=== PATIENT | male | born 1965 | race Two or more races ===

== ENCOUNTER 2021-07-31 22:28 | Emergency (ER) | payer MEDICAID, OTHER ==
[~2021-07-31] VITALS: Ht 180.3 cm; Wt 102.1 kg
[2021-08-01] MEDS ORDERED: FUROSEMIDE 40 MG/4 ML VIAL IV ONE (00:30)
[2021-08-01] MEDS ORDERED: CLIN300C8 PO (01:23)
[2021-08-01] MEDS ORDERED: CEPH-509 PO (01:23)
[2021-08-01 02:16] LABS: Basophils # (auto) 0.1 10 ^3/uL (0-0.2); Monocytes # (auto) 1.4 10 ^3/uL (0-1.3)
[2021-08-01 02:19] LABS: Basophils % (auto) 1.3 % (0.0-2.0); Eosinophils # (auto) 0.2 10 ^3/uL (0-0.8); Eosinophils % (auto) 1.9 % (0.0-7.0); Hematocrit 41.8 % (41.0-53.0); Hemoglobin 13.5 g/dL (13.5-17.5); Lymphocytes # (auto) 2.5 10 ^3/uL (0.4-5.4); Lymphocytes % (auto) 23.5 % (10.0-50.0); Mean Corpuscular Hemoglobin 22.3 pg (28.0-32.0); Mean Corpuscular Hgb Conc. 32.3 g/dL (32.0-36.0); Mean Corpuscular Volume 69.2 fL (80.0-100.0); Monocytes % (auto) 13.7 % (0.0-12.0); Neutrophils # (auto) 6.3 10 ^3/uL (1.6-8.6); Neutrophils % (auto) 59.6 % (37.0-80.0); Nucleated Red Blood Cells % 0.1 %; Red Blood Cells 6.04 10^6/uL (4.5-5.90); Red Cell Distribution Width 15.4 % (11.8-14.3); White Blood Cell 10.6 10^3/uL (4.4-10.8)
[2021-08-01 02:34] LABS: Potassium 4.4 mmol/L (3.5-5.1)
[2021-08-01 02:39] LABS: BUN/Creatinine Ratio 22.4; Calcium 9.4 mg/dL (8.5-10.1)
[2021-08-01 02:42] LABS: Bilirubin, Total 0.3 mg/dL (0.2-1.0); Total Protein 7.5 g/dL (6.4-8.2)
[2021-08-01] MEDS ORDERED: HYDROcodone-ACET 10/325MG TAB PO ONE (06:45)
[2021-08-01 07:25] VITALS: BP 154/81
== END 2021-08-01 07:36 | disposition home or self-care (01) ==
LOC: ER 22:45
DX: I50.9 Heart failure, unspecified (principal); L03.116 Cellulitis of left lower limb
CPT/HCPCS: 36415; 71045; 80053; 83880; 85025; 96374; 99284; J1940

== ENCOUNTER 2023-02-17 16:58 | Inpatient (IN) | payer MEDICAID ==
[~2023-02-17] VITALS: Ht 180.3 cm; Wt 89.9 kg
[~2023-02-17 16:58] MED LIST: CEPH-509 PO; CLIN300C70 PO
[2023-02-17 18:12] LABS: Hemoglobin 9.7 g/dL (13.5-17.5)
[2023-02-17 18:14] LABS: Hematocrit 30.1 % (41.0-53.0); Mean Corpuscular Hemoglobin 21.8 pg (28.0-32.0); Mean Corpuscular Hgb Conc. 32.3 g/dL (32.0-36.0); Mean Corpuscular Volume 67.3 fL (80.0-100.0); Red Blood Cells 4.47 10^6/uL (4.5-5.90); Red Cell Distribution Width 18.8 % (11.8-14.3); White Blood Cell 20.9 10^3/uL (4.4-10.8)
[2023-02-17 18:19] LABS: Basophils % (manual) 0 (0.0-2.0); Blast Cells 0; Metamyelocytes % 0; Myelocytes % 0; Promyelocytes % 0; Reactive Lymphocytes 0
[2023-02-17 18:27] LABS: INR 1.54 (0.9-1.15); Partial Thromboplastin Time 26.1 SEC (24.5-34.5); Prothrombin Time 15.7 sec (9.3-11.8)
[2023-02-17 18:40] LABS: Calcium 11.7 mg/dL (8.5-10.1); Potassium 3.9 mmol/L (3.5-5.1)
[2023-02-17 18:43] LABS: BUN/Creatinine Ratio 11.3 (10.0-20.0); Bilirubin, Total 0.6 mg/dL (0.2-1.0); Total Protein 8.6 g/dL (6.4-8.2)
[2023-02-17 19:13] LABS: Band Neutrophils % (manual) 2; Eosinophils % (manual) 18 (0-7); Lymphocytes % (manual) 8 (10.0-50.0); Monocytes % (manual) 10 (0-12)
[2023-02-17 19:14] LABS: Anisocytosis Slight; Hypochromia Slight; Macrocytosis Slight; Platelet Estimate Adequate
[2023-02-17] MEDS ORDERED: cefTRIAXone 1GM/50ML D5W 50 ML IV ONE (21:00)
[2023-02-17] MEDS ORDERED: DEXTROSE (50%) 50ML SYRG IV PRN (21:00)
[2023-02-17] MEDS ORDERED: ONDANSETRON HCL 4 MG/2 ML VIAL IV PRN (21:00)
[2023-02-17] MEDS: InsuLIN REG 1unit/0.01ml Soln (100units/ml) SC SCH (22:00)
[2023-02-17] MEDS: HYDROcodone-ACET 5/325MG TAB PO PRN (22:10)
[2023-02-17] MEDS: ACCU-CHEK COMFORT CURVE STRIP VI SCH (22:11)
[2023-02-17 23:49] LABS: Urine Bacteria NONE SEEN /hpf (None Seen); Urine Blood Negative /uL (Negative); Urine Budding Yeast OCCASIONAL /hpf (None Seen); Urine Clarity CLOUDY (Clear); Urine Color Yellow (Yellow); Urine Protein, UAD 1+ (Negative); Urine Specific Gravity 1.028 (1.001-1.035); Urine WBC 3 /hpf (0 - 3); Urine WBC Clumps PRESENT /hpf (None Seen); Urine pH 6.5 (5.0-8.0)
[2023-02-18] MEDS: HYDROcodone-ACET 5/325MG TAB PO PRN ×3 (04:08→14:51)
[2023-02-18 06:46] LABS: Hemoglobin 9.1 g/dL (13.5-17.5); Mean Corpuscular Hgb Conc. 32.4 g/dL (32.0-36.0)
[2023-02-18 06:48] LABS: Hematocrit 28.2 % (41.0-53.0); Mean Corpuscular Hemoglobin 21.9 pg (28.0-32.0); Mean Corpuscular Volume 67.5 fL (80.0-100.0); Red Blood Cells 4.17 10^6/uL (4.5-5.90); Red Cell Distribution Width 18.5 % (11.8-14.3); White Blood Cell 20.4 10^3/uL (4.4-10.8)
[2023-02-18 06:52] LABS: Basophils % (manual) 0 (0.0-2.0); Blast Cells 0; Metamyelocytes % 0; Myelocytes % 0; Promyelocytes % 0; Reactive Lymphocytes 0
[2023-02-18] MEDS: ACCU-CHEK COMFORT CURVE STRIP VI SCH ×4 (06:55→22:00)
[2023-02-18] MEDS: InsuLIN REG 1unit/0.01ml Soln (100units/ml) SC SCH ×4 (06:56→22:00)
[2023-02-18 07:03] LABS: Potassium 3.4 mmol/L (3.5-5.1)
[2023-02-18 07:07] LABS: BUN/Creatinine Ratio 11.8 (10.0-20.0); Calcium 11.4 mg/dL (8.5-10.1)
[2023-02-18 07:25] VITALS: PULSE 94; RESP 20; O2SAT 97
[2023-02-18 07:39] LABS: Anisocytosis Slight; Band Neutrophils % (manual) 1; Eosinophils % (manual) 27 (0-7); Lymphocytes % (manual) 12 (10.0-50.0); Monocytes % (manual) 7 (0-12); Platelet Estimate Adequate
[2023-02-18 07:40] LABS: Hypochromia Moderate; Large Platelets FEW; Stomatocytes Few; Target Cell FEW
[2023-02-18] MEDS: cefTRIAXone 1GM/50ML D5W 50 ML IV SCH (08:56)
[2023-02-18] MEDS: LISINOPRIL 10 MG TAB PO SCH (09:51)
[2023-02-18] MEDS: FUROSEMIDE 40 MG TAB PO SCH (09:51)
[2023-02-18 10:53] LABS: Ferritin 228.6 ng/mL (10-322)
[2023-02-18 10:55] LABS: % Iron Saturation 32.9 % (20-55)
[2023-02-18] MEDS ORDERED: LISI10TA34 PO (22:52)
[2023-02-18] MEDS ORDERED: FURO40TA4 PO (22:52)
[2023-02-18] MEDS ORDERED: METF-869 PO (22:52)
[2023-02-18] MEDS ORDERED: HYDR-4072 PO (22:52)
[2023-02-18] MEDS ORDERED: INSU1INJ19 SC (22:52)
[2023-02-18] MEDS ORDERED: GLIP10TA9 PO (22:52)
[2023-02-18] MEDS ORDERED: SEMA2INJ3 SC (22:52)
[2023-02-18 23:00] VITALS: BP 136/79; PULSE 100; RESP 20; TEMP 98; O2SAT 96
[2023-02-18] MEDS: ACETAMINOPHEN 325 MG TAB PO PRN (23:12)
[2023-02-19] VITALS (7 sets, daily range): BP systolic 108–135; BP diastolic 61–80; PULSE 98–116; RESP 16–20; TEMP 98–98.4; O2SAT 88–96
[2023-02-19 05:26] LABS: Hemoglobin 9.4 g/dL (13.5-17.5)
[2023-02-19 05:27] LABS: Hematocrit 28.8 % (41.0-53.0); Mean Corpuscular Hemoglobin 21.9 pg (28.0-32.0); Mean Corpuscular Hgb Conc. 32.7 g/dL (32.0-36.0); Mean Corpuscular Volume 67.2 fL (80.0-100.0); Red Blood Cells 4.29 10^6/uL (4.5-5.90); Red Cell Distribution Width 18.2 % (11.8-14.3)
[2023-02-19 05:37] LABS: Potassium 3.2 mmol/L (3.5-5.1)
[2023-02-19 05:39] LABS: Basophils % (manual) 0 (0.0-2.0); Blast Cells 0; Metamyelocytes % 0; Myelocytes % 0; Promyelocytes % 0; Reactive Lymphocytes 0
[2023-02-19 05:46] LABS: Albumin 1.7 g/dL (3.4-5.0); BUN/Creatinine Ratio 11.5 (10.0-20.0); Bilirubin, Total 0.5 mg/dL (0.2-1.0); Calcium 11.5 mg/dL (8.5-10.1); Total Protein 8.3 g/dL (6.4-8.2)
[2023-02-19] MEDS: ACCU-CHEK COMFORT CURVE STRIP VI SCH ×4 (06:27→21:50)
[2023-02-19] MEDS: InsuLIN REG 1unit/0.01ml Soln (100units/ml) SC SCH ×4 (06:27→21:50)
[2023-02-19] MEDS: HYDROcodone-ACET 5/325MG TAB PO PRN ×3 (07:18→21:51)
[2023-02-19] MEDS ORDERED: fentaNYL CITRATE 100 MCG/2 ML VL IV ONE (08:00)
[2023-02-19] MEDS ORDERED: MIDAZOLAM HCL 2MG/2ML 2ml VIAL (1mg/ml) IV ONE (08:00)
[2023-02-19 08:06] LABS: Haptoglobin 184 mg/dL (29-370); Immunoglobulin A 180 mg/dL (90-386); Immunoglobulin G, Serum 4398 mg/dL (603-1613); Immunoglobulin M 63 mg/dL (20-172)
[2023-02-19 08:39] LABS: Anisocytosis Slight; Band Neutrophils % (manual) 1; Eosinophils % (manual) 26 (0-7); Hypochromia Moderate; Lymphocytes % (manual) 12 (10.0-50.0); Monocytes % (manual) 5 (0-12); Platelet Estimate Adequate; Target Cell FEW
[2023-02-19 08:40] LABS: Large Platelets FEW
[2023-02-19] MEDS: cefTRIAXone 1GM/50ML D5W 50 ML IV SCH (09:44)
[2023-02-19] MEDS: LISINOPRIL 10 MG TAB PO SCH (09:47)
[2023-02-19] MEDS: FUROSEMIDE 40 MG TAB PO SCH (09:48)
[2023-02-19] MEDS ORDERED: diphenhdrAMINE HCL 25 MG CAP PO ONE ×2 (10:30→13:00)
[2023-02-19] MEDS ORDERED: AZITHROMYCIN 250 MG TAB PO ONE (13:00)
[2023-02-19] MEDS ORDERED: amLODIPine BESYLATE 5 MG TAB PO ONE (13:00)
[2023-02-19] MEDS ORDERED: POTASSIUM CHL 20 Meq TABLET PO ONE (13:00)
[2023-02-19] MEDS ORDERED: FUROSEMIDE 40 MG/4 ML VIAL IV ONE (13:00)
[2023-02-19] MEDS ORDERED: ATORVASTATIN 20 MG TAB PO ONE (13:00)
[2023-02-19] MEDS: ATORVASTATIN 20 MG TAB PO SCH (21:50)
[2023-02-20] VITALS (7 sets, daily range): BP systolic 94–119; BP diastolic 46–71; PULSE 80–101; RESP 14–19; TEMP 97.8–99.2; O2SAT 91–97
[2023-02-20 06:38] LABS: Hemoglobin 10.1 g/dL (13.5-17.5); Mean Corpuscular Volume 66.6 fL (80.0-100.0); White Blood Cell 21.1 10^3/uL (4.4-10.8)
[2023-02-20 06:41] LABS: Hematocrit 31.5 % (41.0-53.0); Mean Corpuscular Hemoglobin 21.3 pg (28.0-32.0); Red Blood Cells 4.73 10^6/uL (4.5-5.90); Red Cell Distribution Width 18.9 % (11.8-14.3)
[2023-02-20] MEDS: InsuLIN REG 1unit/0.01ml Soln (100units/ml) SC SCH ×4 (06:43→21:43)
[2023-02-20] MEDS: ACCU-CHEK COMFORT CURVE STRIP VI SCH ×4 (06:43→21:41)
[2023-02-20 06:50] LABS: Basophils % (manual) 0 (0.0-2.0); Blast Cells 0; Myelocytes % 0; Promyelocytes % 0; Reactive Lymphocytes 0
[2023-02-20 06:59] LABS: BUN/Creatinine Ratio 13.4 (10.0-20.0); Calcium 11.5 mg/dL (8.5-10.1); Potassium 3.4 mmol/L (3.5-5.1)
[2023-02-20 08:06] LABS: Vitamin D, 25-Hydroxy 27.8 ng/mL (30.0-100.0)
[2023-02-20 08:06] LABS: Albumin 2.1 g/dL (2.9-4.4); Alpha-1-Globulin 0.3 g/dL (0.0-0.4); Alpha-2-Globulin 0.9 g/dL (0.4-1.0); Protein Total Serum 8.1 g/dL (6.0-8.5)
[2023-02-20 08:12] LABS: Band Neutrophils % (manual) 3; Eosinophils % (manual) 21 (0-7); Lymphocytes % (manual) 14 (10.0-50.0); Metamyelocytes % 1; Monocytes % (manual) 6 (0-12)
[2023-02-20 08:13] LABS: Anisocytosis Slight
[2023-02-20 08:14] LABS: Hypochromia Moderate; Platelet Estimate Adequate
[2023-02-20] MEDS: cefTRIAXone 1GM/50ML D5W 50 ML IV SCH (08:48)
[2023-02-20] MEDS: AZITHROMYCIN 250 MG TAB PO SCH (08:48)
[2023-02-20] MEDS: amLODIPine BESYLATE 5 MG TAB PO SCH (08:49)
[2023-02-20] MEDS: HYDROcodone-ACET 5/325MG TAB PO PRN (08:57)
[2023-02-20] MEDS ORDERED: FUROSEMIDE 40 MG/4 ML VIAL IV SCH (10:00)
[2023-02-20] MEDS ORDERED: POTASSIUM CHL 20 Meq TABLET PO ONE (10:15)
[2023-02-20] MEDS ORDERED: DexAMETHasone SOD PHOS 4 MG/1ML SDV INJ IM ONE (10:15)
[2023-02-20] MEDS: SODIUM CHLORIDE 0.9% 1,000 ML IV SCH ×2 (10:54→21:10)
[2023-02-20] MEDS: diphenhdrAMINE HCL 25 MG CAP PO PRN ×2 (11:02→21:40)
[2023-02-20 11:07] LABS: Calcitriol(125 di-OH Vit D) 18.6 pg/mL (24.8-81.5)
[2023-02-20] MEDS ORDERED: DexAMETHasone 4 MG TAB PO ONE (11:30)
[2023-02-20] MEDS ORDERED: OXYMETAZOLINE HCL 0.05 % NASAL SPRAY 15ML EACHNOSTRI ONE (17:15)
[2023-02-20] MEDS: DexAMETHasone 4 MG TAB PO SCH (21:40)
[2023-02-20] MEDS: ATORVASTATIN 20 MG TAB PO SCH (21:41)
[2023-02-20] MEDS ORDERED: DexAMETHasone SOD PHOS 4 MG/1ML SDV INJ IM SCH (22:00)
[2023-02-21 05:00] VITALS: BP 107/52; PULSE 98; RESP 19; TEMP 98.4; O2SAT 94
[2023-02-21 06:05] LABS: BUN/Creatinine Ratio 17.5 (10.0-20.0); Calcium 10.9 mg/dL (8.5-10.1); Potassium 3.8 mmol/L (3.5-5.1)
[2023-02-21] MEDS: SODIUM CHLORIDE 0.9% 1,000 ML IV SCH ×3 (06:07→22:48)
[2023-02-21] MEDS: ACCU-CHEK COMFORT CURVE STRIP VI SCH ×4 (06:08→22:48)
[2023-02-21] MEDS: InsuLIN REG 1unit/0.01ml Soln (100units/ml) SC SCH ×4 (06:14→22:46)
[2023-02-21 06:18] LABS: Hemoglobin 9.3 g/dL (13.5-17.5)
[2023-02-21 06:21] LABS: Hematocrit 29.1 % (41.0-53.0); Mean Corpuscular Hemoglobin 21.7 pg (28.0-32.0); Mean Corpuscular Volume 67.9 fL (80.0-100.0); Red Blood Cells 4.28 10^6/uL (4.5-5.90); Red Cell Distribution Width 18.6 % (11.8-14.3)
[2023-02-21 06:24] LABS: Basophils % (manual) 0 (0.0-2.0); Blast Cells 0; Myelocytes % 0; Promyelocytes % 0; Reactive Lymphocytes 0
[2023-02-21 07:38] LABS: Band Neutrophils % (manual) 3; Lymphocytes % (manual) 10 (10.0-50.0)
[2023-02-21 07:39] LABS: Anisocytosis Slight; Eosinophils % (manual) 16 (0-7); Hypochromia Moderate; Metamyelocytes % 1; Monocytes % (manual) 15 (0-12)
[2023-02-21 07:40] LABS: Platelet Estimate Adequate
[2023-02-21 09:00] VITALS: BP 126/70; PULSE 88; RESP 20; TEMP 98.3; O2SAT 95
[2023-02-21] MEDS: cefTRIAXone 1GM/50ML D5W 50 ML IV SCH (09:12)
[2023-02-21] MEDS: DexAMETHasone 4 MG TAB PO SCH ×2 (09:29→22:42)
[2023-02-21] MEDS: amLODIPine BESYLATE 5 MG TAB PO SCH (09:30)
[2023-02-21] MEDS: AZITHROMYCIN 250 MG TAB PO SCH (09:30)
[2023-02-21] MEDS ORDERED: FUROSEMIDE 20 MG/2 ML VIAL IV SCH (10:00)
[2023-02-21] MEDS ORDERED: DOCUSATE CALCIUM 240 MG CAP PO ONE (10:30)
[2023-02-21 13:00] VITALS: BP 119/74; PULSE 95; RESP 20; TEMP 98; O2SAT 94
[2023-02-21] MEDS: diphenhdrAMINE HCL 25 MG CAP PO PRN ×2 (14:48→19:56)
[2023-02-21] MEDS: HYDROcodone-ACET 5/325MG TAB PO PRN ×2 (15:26→19:58)
[2023-02-21 17:00] VITALS: BP 133/77; PULSE 97; RESP 19; TEMP 98.1; O2SAT 93
[2023-02-21 20:00] VITALS: PULSE 84; RESP 20
[2023-02-21] MEDS: ATORVASTATIN 20 MG TAB PO SCH (22:41)
[2023-02-22] MEDS: HYDROcodone-ACET 5/325MG TAB PO PRN ×5 (00:13→21:45)
[2023-02-22] MEDS: diphenhdrAMINE HCL 25 MG CAP PO PRN ×3 (04:04→23:56)
[2023-02-22 05:00] VITALS: BP 117/69; PULSE 87; RESP 20; TEMP 98.2; O2SAT 98
[2023-02-22] MEDS: InsuLIN REG 1unit/0.01ml Soln (100units/ml) SC SCH ×4 (06:02→21:54)
[2023-02-22] MEDS: ACCU-CHEK COMFORT CURVE STRIP VI SCH ×4 (06:03→21:50)
[2023-02-22 06:43] LABS: Hemoglobin 9.7 g/dL (13.5-17.5); White Blood Cell 14.1 10^3/uL (4.4-10.8)
[2023-02-22 06:46] LABS: Hematocrit 29.7 % (41.0-53.0); Mean Corpuscular Hemoglobin 22.6 pg (28.0-32.0); Mean Corpuscular Hgb Conc. 32.6 g/dL (32.0-36.0); Mean Corpuscular Volume 69.3 fL (80.0-100.0); Red Blood Cells 4.28 10^6/uL (4.5-5.90); Red Cell Distribution Width 19.1 % (11.8-14.3)
[2023-02-22 07:03] LABS: BUN/Creatinine Ratio 15.9 (10.0-20.0); Calcium 10.5 mg/dL (8.5-10.1); Potassium 3.7 mmol/L (3.5-5.1)
[2023-02-22 07:16] LABS: Basophils % (manual) 0 (0.0-2.0); Blast Cells 0; Myelocytes % 0; Promyelocytes % 0; Reactive Lymphocytes 0
[2023-02-22 09:17] VITALS: BP 99/49; PULSE 89; RESP 20; TEMP 98.5; O2SAT 90
[2023-02-22] MEDS: DexAMETHasone 4 MG TAB PO SCH ×2 (09:37→21:45)
[2023-02-22] MEDS: cefTRIAXone 1GM/50ML D5W 50 ML IV SCH (09:37)
[2023-02-22] MEDS: AZITHROMYCIN 250 MG TAB PO SCH ×2 (09:37→09:53)
[2023-02-22] MEDS: amLODIPine BESYLATE 5 MG TAB PO SCH (09:39)
[2023-02-22] MEDS ORDERED: HYDROCORTONE 1% TOPICAL CREAM 30 GM TUBE TOP ONE (09:45)
[2023-02-22 12:17] LABS: Anisocytosis Slight; Band Neutrophils % (manual) 2; Eosinophils % (manual) 5 (0-7); Hypochromia Moderate; Lymphocytes % (manual) 18 (10.0-50.0); Metamyelocytes % 1; Monocytes % (manual) 5 (0-12); Platelet Estimate Adequate
[2023-02-22 12:52] VITALS: BP 114/63; PULSE 87; RESP 20; TEMP 98.4; O2SAT 93
[2023-02-22 17:00] VITALS: BP 127/70; PULSE 89; RESP 17; TEMP 97.7; O2SAT 90
[2023-02-22 20:00] VITALS: RESP 18
[2023-02-22] MEDS: ATORVASTATIN 20 MG TAB PO SCH (21:44)
[2023-02-22 22:00] VITALS: BP 115/70; PULSE 85; RESP 16; TEMP 98.5; O2SAT 95
[2023-02-23] MEDS ORDERED: diphenhdrAMINE HCL 50 MG/1 ML VL IV ONE (03:00)
[2023-02-23] MEDS ORDERED: methylPREDNISolone SOD SUCC 40 MG/ML VL IV SCH (03:00)
[2023-02-23] MEDS ORDERED: diphenhdrAMINE HCL 50 MG/1 ML VL IV PRN (03:00)
[2023-02-23] MEDS: methylPREDNISolone SOD SUCC 125 MG/2 ML VL IV SCH ×3 (03:33→19:46)
[2023-02-23 05:00] VITALS: BP 136/77; PULSE 84; RESP 21; TEMP 98.4; O2SAT 92
[2023-02-23 06:34] LABS: Basophils # (auto) 0.1 10 ^3/uL (0-0.2); Nucleated Red Blood Cells % 0.1 %
[2023-02-23 06:36] LABS: Basophils % (auto) 0.7 % (0.0-2.0); Eosinophils # (auto) 0.7 10 ^3/uL (0-0.8); Eosinophils % (auto) 5.8 % (0.0-7.0); Hematocrit 29.1 % (41.0-53.0); Hemoglobin 9.4 g/dL (13.5-17.5); Lymphocytes # (auto) 2.1 10 ^3/uL (0.4-5.4); Lymphocytes % (auto) 16.7 % (10.0-50.0); Mean Corpuscular Hemoglobin 21.9 pg (28.0-32.0); Mean Corpuscular Hgb Conc. 32.3 g/dL (32.0-36.0); Mean Corpuscular Volume 67.8 fL (80.0-100.0); Monocytes # (auto) 1.2 10 ^3/uL (0-1.3); Monocytes % (auto) 9.2 % (0.0-12.0); Neutrophils # (auto) 8.7 10 ^3/uL (1.6-8.6); Neutrophils % (auto) 67.6 % (37.0-80.0); Red Blood Cells 4.29 10^6/uL (4.5-5.90); Red Cell Distribution Width 19.2 % (11.8-14.3); White Blood Cell 12.8 10^3/uL (4.4-10.8)
[2023-02-23 06:53] LABS: Potassium 4.2 mmol/L (3.5-5.1)
[2023-02-23 06:55] LABS: BUN/Creatinine Ratio 20.6 (10.0-20.0)
[2023-02-23] MEDS: ACCU-CHEK COMFORT CURVE STRIP VI SCH ×4 (07:11→22:41)
[2023-02-23] MEDS: HYDROcodone-ACET 5/325MG TAB PO PRN ×3 (07:11→17:06)
[2023-02-23] MEDS: InsuLIN REG 1unit/0.01ml Soln (100units/ml) SC SCH ×4 (07:11→22:41)
[2023-02-23 09:00] VITALS: BP 129/77; PULSE 83; RESP 18; TEMP 98; O2SAT 95
[2023-02-23] MEDS: amLODIPine BESYLATE 5 MG TAB PO SCH (09:57)
[2023-02-23] MEDS: AZITHROMYCIN 250 MG TAB PO SCH (09:57)
[2023-02-23] MEDS: diphenhdrAMINE HCL 50 MG/1 ML VL IV PRN ×2 (09:57→17:15)
[2023-02-23] MEDS: cefTRIAXone 1GM/50ML D5W 50 ML IV SCH (09:58)
[2023-02-23 13:00] VITALS: BP 139/78; PULSE 84; RESP 20; TEMP 98.2; O2SAT 96
[2023-02-23 17:00] VITALS: BP 134/87; PULSE 92; RESP 15; TEMP 98; O2SAT 93
[2023-02-23 20:00] VITALS: PULSE 87; RESP 18; O2SAT 92
[2023-02-23] MEDS: ACETAMINOPHEN 325 MG TAB PO PRN (20:28)
[2023-02-23 22:00] VITALS: BP 120/70; PULSE 87; RESP 18; TEMP 98.2; O2SAT 92
[2023-02-23] MEDS: ATORVASTATIN 20 MG TAB PO SCH (22:41)
[2023-02-24] MEDS: methylPREDNISolone SOD SUCC 125 MG/2 ML VL IV SCH ×2 (03:32→11:21)
[2023-02-24] MEDS: InsuLIN REG 1unit/0.01ml Soln (100units/ml) SC SCH ×2 (06:20→11:25)
[2023-02-24] MEDS: ACCU-CHEK COMFORT CURVE STRIP VI SCH ×2 (06:21→11:24)
[2023-02-24] MEDS: HYDROcodone-ACET 5/325MG TAB PO PRN ×2 (06:21→11:21)
[2023-02-24 06:31] LABS: Basophils # (auto) 0.1 10 ^3/uL (0-0.2); Nucleated Red Blood Cells % 0.1 %
[2023-02-24 06:34] LABS: Basophils % (auto) 0.5 % (0.0-2.0); Eosinophils # (auto) 0.1 10 ^3/uL (0-0.8); Eosinophils % (auto) 0.4 % (0.0-7.0); Hematocrit 29.8 % (41.0-53.0); Hemoglobin 9.7 g/dL (13.5-17.5); Lymphocytes # (auto) 2.4 10 ^3/uL (0.4-5.4); Lymphocytes % (auto) 17.6 % (10.0-50.0); Mean Corpuscular Hemoglobin 22.2 pg (28.0-32.0); Mean Corpuscular Hgb Conc. 32.4 g/dL (32.0-36.0); Mean Corpuscular Volume 68.5 fL (80.0-100.0); Monocytes # (auto) 1.9 10 ^3/uL (0-1.3); Monocytes % (auto) 13.7 % (0.0-12.0); Neutrophils # (auto) 9.4 10 ^3/uL (1.6-8.6); Neutrophils % (auto) 67.8 % (37.0-80.0); Red Blood Cells 4.35 10^6/uL (4.5-5.90); Red Cell Distribution Width 19.3 % (11.8-14.3); White Blood Cell 13.9 10^3/uL (4.4-10.8)
[2023-02-24 06:46] LABS: Albumin 2.2 g/dL (3.4-5.0); Calcium 9.6 mg/dL (8.5-10.1); Magnesium 2.6 mg/dL (1.6-2.6); Potassium 4.5 mmol/L (3.5-5.1)
[2023-02-24 06:57] LABS: BUN/Creatinine Ratio 28.7 (10.0-20.0); Bilirubin, Total 0.3 mg/dL (0.2-1.0); Total Protein 9.1 g/dL (6.4-8.2)
[2023-02-24 08:55] VITALS: BP 123/67; PULSE 78; RESP 18; TEMP 97.6; O2SAT 95
[2023-02-24] MEDS: diphenhdrAMINE HCL 50 MG/1 ML VL IV PRN (09:26)
[2023-02-24] MEDS: cefTRIAXone 1GM/50ML D5W 50 ML IV SCH (09:27)
[2023-02-24] MEDS: amLODIPine BESYLATE 5 MG TAB PO SCH (09:28)
[2023-02-24] MEDS: AZITHROMYCIN 250 MG TAB PO SCH (09:28)
[2023-02-24 12:40] VITALS: BP 123/67; TEMP 36.4
[2023-02-24 13:00] VITALS: BP 119/63; PULSE 89; RESP 14; TEMP 98.2; O2SAT 96
[2023-02-24] MEDS ORDERED: ATOR20TA50 PO (14:03)
[2023-02-24] MEDS ORDERED: METH4PAK PO (14:03)
[2023-02-24] MEDS ORDERED: AUG875T PO (14:03)
[2023-02-24] MEDS ORDERED: AZIT-43 PO (14:03)
== END 2023-02-24 14:00 | disposition home or self-care (01) | DRG 681 ==
LOC: ER 16:58 → OVERFLOW 21:03 → EAST 02-18 22:10 → WEST WING 02-19 07:08
PROVIDERS: ADMIT Internal Medicine; ATTEND Student in an Organized Health Care Education/Training Program
PROC: 07BH3ZX Excision of Right Inguinal Lymphatic, Percutaneous Approach, Diagnostic (ICD-10-PCS; principal; 2023-02-19)
DX: C85.90 Non-Hodgkin lymphoma, unspecified, unspecified site (principal); N17.0 Acute kidney failure with tubular necrosis; I50.33 Acute on chronic diastolic (congestive) heart failure; E43 Unspecified severe protein-calorie malnutrition; J18.9 Pneumonia, unspecified organism; C95.90 Leukemia, unspecified not having achieved remission; D72.19 Other eosinophilia; I11.0 Hypertensive heart disease with heart failure; A15.9 Respiratory tuberculosis unspecified; R53.0 Neoplastic (malignant) related fatigue; E11.65 Type 2 diabetes mellitus with hyperglycemia; D50.9 Iron deficiency anemia, unspecified; E78.5 Hyperlipidemia, unspecified; E83.52 Hypercalcemia; E87.6 Hypokalemia; Z82.49 Family history of ischemic heart disease and other diseases of the circulatory system; Z79.2 Long term (current) use of antibiotics; Z79.899 Other long term (current) drug therapy; Z68.28 Body mass index [BMI] 28.0-28.9, adult
CPT/HCPCS: 10005; 36415; 71045; 71046; 71260; 72192; 74177; 76942; 77012; 80048; 80053; 80061; 81001; 82306; 82607; 82728; 82784; 82962; 83010; 83036; 83540; 83550; 83605; 83615; 83735; 83880; 83883; 83970; 84155; 84165; 84484; 85007; 85025; 85027; 85045; 85610; 85730; 86334; 86335; 86703; 87040; 88184; 93005; 93306; 96365; 96366; 99291; G0378; J0696; J1100; J1815; J2250; J2405

== ENCOUNTER 2023-03-03 10:21 | Inpatient (IN) | payer MEDICAID ==
[~2023-03-03] VITALS: Ht 177.8 cm; Wt 78.4 kg
[~2023-03-03 10:21] MED LIST changes: +ATOR20TA50 PO; +AUG875T PO; +AZIT-43 PO; -CEPH-509 PO; -CLIN300C70 PO; +FURO40TA4 PO; +GLIP10TA9 PO; +HYDR-4072 PO; +INSU1INJ19 SC; +LISI10TA34 PO; +METF-869 PO; +METH4PAK PO; +SEMA2INJ3 SC
[2023-03-03 10:58] LABS: Basophils # (auto) 0.1 10 ^3/uL (0-0.2); Basophils % (auto) 0.3 % (0.0-2.0); Eosinophils # (auto) 2.2 10 ^3/uL (0-0.8); Eosinophils % (auto) 14.7 % (0.0-7.0); Hemoglobin 10.3 g/dL (13.5-17.5); Lymphocytes # (auto) 1.3 10 ^3/uL (0.4-5.4); Lymphocytes % (auto) 8.8 % (10.0-50.0); Mean Corpuscular Hemoglobin 21.9 pg (28.0-32.0); Mean Corpuscular Hgb Conc. 32.1 g/dL (32.0-36.0); Mean Corpuscular Volume 68.3 fL (80.0-100.0); Monocytes # (auto) 1.3 10 ^3/uL (0-1.3); Monocytes % (auto) 9.1 % (0.0-12.0); Neutrophils # (auto) 9.9 10 ^3/uL (1.6-8.6); Neutrophils % (auto) 67.1 % (37.0-80.0); Red Blood Cells 4.69 10^6/uL (4.5-5.90); Red Cell Distribution Width 19.2 % (11.8-14.3); White Blood Cell 14.8 10^3/uL (4.4-10.8)
[2023-03-03 11:18] LABS: Albumin 2.4 g/dL (3.4-5.0); Magnesium 2.2 mg/dL (1.6-2.6); Potassium 4.3 mmol/L (3.5-5.1)
[2023-03-03 11:21] LABS: BUN/Creatinine Ratio 13.6 (10.0-20.0); Bilirubin, Total 0.4 mg/dL (0.2-1.0); Total Protein 8.4 g/dL (6.4-8.2)
[2023-03-03 16:00] VITALS: PULSE 86; RESP 22; O2SAT 100
[2023-03-03] MEDS ORDERED: MORPHINE SULFATE 4 MG/ML SYR/VIAL IV ONE (16:00)
[2023-03-03] MEDS ORDERED: ONDANSETRON HCL 4 MG/2 ML VIAL IV ONE (16:00)
[2023-03-03] MEDS ORDERED: IOHEXOL 350 MG/ML 100ML IJ ONE (16:24)
[2023-03-03 19:18] VITALS: PULSE 85; RESP 13; O2SAT 94
[2023-03-03] MEDS ORDERED: ONDANSETRON HCL 4 MG/2 ML VIAL IV PRN (23:15)
[2023-03-03] MEDS ORDERED: NITROGLYCERIN 0.4 MG SL TAB SL PRN (23:15)
[2023-03-03] MEDS ORDERED: ACETAMINOPHEN 325 MG TAB PO PRN (23:15)
[2023-03-03] MEDS ORDERED: TEMAZEPAM 15 MG CAP PO PRN (23:15)
[2023-03-03] MEDS ORDERED: ALBUTEROL SULF 2.5 MG/0.5ML(0.5%) NEB SOLN NEB PRN (23:15)
[2023-03-03] MEDS ORDERED: DEXTROSE (50%) 50ML SYRG IV PRN (23:15)
[2023-03-03] MEDS ORDERED: cefTRIAXone 1GM/50ML D5W 50 ML IV ONE (23:15)
[2023-03-03] MEDS ORDERED: MORPHINE SULFATE INJ 2 MG/ml SYRG IV PRN (23:15)
[2023-03-03 23:37] VITALS: BP 109/68; PULSE 98; RESP 18; TEMP 97.5; O2SAT 95
[2023-03-04 02:02] VITALS: O2SAT 96
[2023-03-04] MEDS ORDERED: HYDROcodone-ACET 5/325MG TAB PO PRN (05:30)
[2023-03-04 05:49] LABS: Hematocrit 33.6 % (41.0-53.0); Hemoglobin 10.9 g/dL (13.5-17.5); Mean Corpuscular Hemoglobin 22.3 pg (28.0-32.0); Mean Corpuscular Hgb Conc. 32.5 g/dL (32.0-36.0); Mean Corpuscular Volume 68.5 fL (80.0-100.0); Red Cell Distribution Width 19.4 % (11.8-14.3); White Blood Cell 19.5 10^3/uL (4.4-10.8)
[2023-03-04 05:53] VITALS: O2SAT 99
[2023-03-04 06:05] LABS: Potassium 3.8 mmol/L (3.5-5.1)
[2023-03-04 06:11] LABS: Band Neutrophils % (manual) 0; Basophils % (manual) 0 (0.0-2.0); Blast Cells 0; Metamyelocytes % 0; Myelocytes % 0; Promyelocytes % 0; Reactive Lymphocytes 0
[2023-03-04 06:15] LABS: Albumin 2.4 g/dL (3.4-5.0); BUN/Creatinine Ratio 10.4 (10.0-20.0); Bilirubin, Total 0.3 mg/dL (0.2-1.0); Calcium 11.3 mg/dL (8.5-10.1); Total Protein 9.4 g/dL (6.4-8.2)
[2023-03-04] MEDS: InsuLIN REG 1unit/0.01ml Soln (100units/ml) SC SCH ×4 (07:00→22:38)
[2023-03-04] MEDS: ACCU-CHEK COMFORT CURVE STRIP VI SCH ×4 (07:08→22:34)
[2023-03-04] MEDS ORDERED: SODIUM CHLORIDE 0.9% 500 ML IV ONE (07:30)
[2023-03-04] MEDS ORDERED: VANCOMYCIN PER PHARMACY 0 MG IV SCH (07:30)
[2023-03-04] MEDS ORDERED: VANCOMYCIN 1GM/250ML 250 ML IV ONE (08:15)
[2023-03-04 08:31] VITALS: PULSE 103; RESP 20; O2SAT 96
[2023-03-04] MEDS: ENOXAPARIN SOD 40 MG/0.4 ML SYRINGE SC SCH (08:43)
[2023-03-04] MEDS: LISINOPRIL 10 MG TAB PO SCH (08:44)
[2023-03-04 08:55] LABS: Eosinophils % (manual) 22 (0-7); Lymphocytes % (manual) 9 (10.0-50.0); Monocytes % (manual) 5 (0-12); Platelet Estimate Increased
[2023-03-04] MEDS ORDERED: PANTOPRAZOLE 40 MG TAB PO SCH (10:00)
[2023-03-04] MEDS: LORazepam 2MG/ML-1ML VIAL IV PRN (10:10)
[2023-03-04 13:05] LABS: Urine Bacteria NONE SEEN /hpf (None Seen); Urine Blood 2+ /uL (Negative); Urine Clarity HAZY (Clear); Urine Color Yellow (Yellow); Urine Mucus FEW (None Seen); Urine Protein, UAD 1+ (Negative); Urine Urobilinogen Normal (Negative); Urine WBC 14 /hpf (0 - 3)
[2023-03-04 14:29] LABS: Alcohol, Urine < 3.0 mg/dL (0-10)
[2023-03-04 14:38] LABS: Amphetamine Screen, Urine POSITIVE (NEGATIVE); Barbiturate Scree,Urine NEGATIVE (NEGATIVE); Benzodiazephine Screen, Urine NEGATIVE (NEGATIVE); Cannabinoid Screen, Urine NEGATIVE (NEGATIVE); Cocaine Screen, Urine NEGATIVE (NEGATIVE); Opiate Scree,Urine POSITIVE (NEGATIVE); Phencyclidine Screen, Urine NEGATIVE (NEGATIVE)
[2023-03-04 16:04] LABS: Base Excess 0.9 mmol/L (-2.0-2.0)
[2023-03-04 18:22] VITALS: O2SAT 100
[2023-03-04 20:00] VITALS: PULSE 117; RESP 25; O2SAT 96
[2023-03-04] MEDS ORDERED: VANCOMYCIN 1GM/250ML 250 ML IV SCH (20:00)
[2023-03-04] MEDS: methylPREDNISolone SOD SUCC 40 MG/ML VL IV SCH (20:22)
[2023-03-04] MEDS ORDERED: cefTRIAXone 1GM/50ML D5W 50 ML IV SCH (21:00)
[2023-03-04] MEDS: ATORVASTATIN 20 MG TAB PO SCH (22:32)
[2023-03-05] VITALS (24 sets, daily range): BP systolic 136–162; BP diastolic 82–100; PULSE 88–122; RESP 11–30; TEMP 98.3–100.8; O2SAT 92–100
[2023-03-05 05:54] LABS: Basophils # (auto) 0.2 10 ^3/uL (0-0.2); Eosinophils # (auto) 0.1 10 ^3/uL (0-0.8); Eosinophils % (auto) 0.4 % (0.0-7.0); Hemoglobin 10.9 g/dL (13.5-17.5); Lymphocytes # (auto) 1.6 10 ^3/uL (0.4-5.4); Nucleated Red Blood Cells % 0.1 %; Red Blood Cells 4.92 10^6/uL (4.5-5.90)
[2023-03-05 05:58] LABS: Basophils % (auto) 0.9 % (0.0-2.0); Mean Corpuscular Hemoglobin 22.1 pg (28.0-32.0); Mean Corpuscular Hgb Conc. 32.1 g/dL (32.0-36.0); Mean Corpuscular Volume 69.1 fL (80.0-100.0); Monocytes # (auto) 1.2 10 ^3/uL (0-1.3); Monocytes % (auto) 6.5 % (0.0-12.0); Neutrophils % (auto) 83.2 % (37.0-80.0); Red Cell Distribution Width 19.4 % (11.8-14.3)
[2023-03-05 06:23] LABS: Potassium 3.8 mmol/L (3.5-5.1)
[2023-03-05 06:33] LABS: BUN/Creatinine Ratio 20.8 (10.0-20.0); Calcium 10.9 mg/dL (8.5-10.1)
[2023-03-05] MEDS: ACCU-CHEK COMFORT CURVE STRIP VI SCH ×4 (06:43→22:06)
[2023-03-05] MEDS: InsuLIN REG 1unit/0.01ml Soln (100units/ml) SC SCH ×4 (06:46→22:00)
[2023-03-05] MEDS ORDERED: methylPREDNISolone SOD SUCC 40 MG/ML VL IV SCH (10:00)
[2023-03-05] MEDS: LISINOPRIL 10 MG TAB PO SCH (10:00)
[2023-03-05 10:17] LABS: Base Excess 1.8 mmol/L (-2.0-2.0)
[2023-03-05] MEDS: PANTOPRAZOLE 40 MG/10 ML VIAL INJ IV SCH (10:19)
[2023-03-05] MEDS: methylPREDNISolone SOD SUCC 40 MG/ML VL IV SCH (10:20)
[2023-03-05] MEDS: ENOXAPARIN SOD 40 MG/0.4 ML SYRINGE SC SCH (10:20)
[2023-03-05] MEDS ORDERED: hydrALAZINE HCL 20 MG/ML VL IV ONE (13:30)
[2023-03-05] MEDS: levoFLOXacin 750MG 150 ML IV SCH (13:43)
[2023-03-05] MEDS: hydrALAZINE HCL 20 MG/ML VL IV PRN (15:11)
[2023-03-05] MEDS ORDERED: KETOROLAC TROMETH 30 MG/ML 1ML VIAL IV PRN (15:45)
[2023-03-05] MEDS ORDERED: LACTULOSE 10g/15ml SOLN 473ML PR ONE (15:45)
[2023-03-05] MEDS: LACTULOSE 10g/15ml SOLN 473ML PR SCH (16:59)
[2023-03-05] MEDS: SODIUM CHLORIDE 0.9% 1,000 ML IV SCH (20:01)
[2023-03-05] MEDS: LORazepam 2MG/ML-1ML VIAL IV PRN (20:01)
[2023-03-05] MEDS: ATORVASTATIN 20 MG TAB PO SCH (21:46)
[2023-03-06] VITALS (32 sets, daily range): BP systolic 120–174; BP diastolic 82–135; PULSE 95–141; RESP 13–31; TEMP 98.6–101.5; O2SAT 87–100
[2023-03-06] MEDS: LACTULOSE 10g/15ml SOLN 473ML PR SCH ×4 (00:08→18:00)
[2023-03-06] MEDS: hydrALAZINE HCL 20 MG/ML VL IV PRN (02:06)
[2023-03-06 05:00] LABS: Hematocrit 38.6 % (41.0-53.0); Hemoglobin 12.6 g/dL (13.5-17.5); Mean Corpuscular Hemoglobin 22.5 pg (28.0-32.0); Mean Corpuscular Hgb Conc. 32.7 g/dL (32.0-36.0); Mean Corpuscular Volume 68.8 fL (80.0-100.0); Red Blood Cells 5.61 10^6/uL (4.5-5.90); Red Cell Distribution Width 19.2 % (11.8-14.3); White Blood Cell 27.6 10^3/uL (4.4-10.8)
[2023-03-06 05:14] LABS: Basophils % (manual) 0 (0.0-2.0); Blast Cells 0; Eosinophils % (manual) 0 (0-7); Metamyelocytes % 0; Myelocytes % 0; Promyelocytes % 0; Reactive Lymphocytes 0
[2023-03-06 05:23] LABS: Potassium 3.8 mmol/L (3.5-5.1)
[2023-03-06 05:31] LABS: Albumin 2.3 g/dL (3.4-5.0); BUN/Creatinine Ratio 27.2 (10.0-20.0); Bilirubin, Total 0.4 mg/dL (0.2-1.0); Total Protein 9.9 g/dL (6.4-8.2)
[2023-03-06] MEDS: InsuLIN REG 1unit/0.01ml Soln (100units/ml) SC SCH ×3 (06:10→17:00)
[2023-03-06] MEDS: ACCU-CHEK COMFORT CURVE STRIP VI SCH ×3 (06:10→17:00)
[2023-03-06] MEDS: SODIUM CHLORIDE 0.9% 1,000 ML IV SCH ×2 (06:10→15:30)
[2023-03-06 06:58] LABS: Band Neutrophils % (manual) 1; Lymphocytes % (manual) 11 (10.0-50.0); Monocytes % (manual) 10 (0-12)
[2023-03-06 06:59] LABS: Hypochromia Slight; Platelet Estimate Adequate
[2023-03-06 07:00] LABS: Stomatocytes Few
[2023-03-06] MEDS: ACETAMINOPHEN 650 MG RECT SUPP PR PRN ×2 (09:28→18:34)
[2023-03-06] MEDS ORDERED: LORazepam 2MG/ML-1ML VIAL IV PRN (09:45)
[2023-03-06] MEDS: LISINOPRIL 10 MG TAB PO SCH (10:00)
[2023-03-06] MEDS: levoFLOXacin 750MG 150 ML IV SCH (10:02)
[2023-03-06] MEDS: PANTOPRAZOLE 40 MG/10 ML VIAL INJ IV SCH (10:05)
[2023-03-06] MEDS: methylPREDNISolone SOD SUCC 40 MG/ML VL IV SCH (10:11)
[2023-03-06] MEDS: ENOXAPARIN SOD 40 MG/0.4 ML SYRINGE SC SCH (10:27)
[2023-03-06] MEDS ORDERED: VANCOMYCIN PER PHARMACY 0 MG IV SCH (10:30)
[2023-03-06] MEDS ORDERED: VANCOMYCIN 1GM/250ML 250 ML IV ONE (10:45)
[2023-03-06] MEDS ORDERED: METOPROLOL TARTRATE 1MG/1ML-5ML VIAL IV ONE (11:30)
[2023-03-06] MEDS ORDERED: ACYCLOVIR 10MG/KG Q8HR PER RX 0 ML IV SCH (12:00)
[2023-03-06] MEDS ORDERED: CEFTRIAXONE SODIUM 2 GM in D5W 5% 100 ML IV ONE (12:15)
[2023-03-06] MEDS: ACYCLOVIR SOD 50MG/ML 800 MG in SODIUM CHL 0.9% 250 ML IV SCH ×2 (14:35→20:51)
[2023-03-06] MEDS ORDERED: PPN PER PHARMACY 0 ML IV SCH (16:45)
[2023-03-06 18:18] LABS: Phosphorus 2.6 mg/dL (2.5-4.90)
[2023-03-06] MEDS ORDERED: AMINO ACID INFUSION IN D10W 1,000 ML IV NR (20:00)
[2023-03-06] MEDS: CEFTRIAXONE SODIUM 2 GM in D5W 5% 100 ML IV SCH (20:51)
[2023-03-06] MEDS ORDERED: VANCOMYCIN 1GM/250ML 250 ML IV SCH (22:00)
[2023-03-06] MEDS: ATORVASTATIN 20 MG TAB PO SCH (22:00)
[2023-03-06 22:17] LABS: INR 1.58 (0.9-1.15); Prothrombin Time 16.1 sec (9.3-11.8)
[2023-03-06 22:19] LABS: INR 1.57 (0.9-1.15); Partial Thromboplastin Time 28.1 SEC (24.5-34.5)
[2023-03-07] VITALS (90 sets, daily range): BP systolic 70–155; BP diastolic 41–103; PULSE 70–158; RESP 14–54; TEMP 95.5–104; O2SAT 90–100
[2023-03-07] MEDS ORDERED: DEXTROSE (50%) 50ML SYRG IV SCH
[2023-03-07] MEDS: ACETAMINOPHEN 650 MG RECT SUPP PR PRN (00:26)
[2023-03-07] MEDS: InsuLIN REG 1unit/0.01ml Soln (100units/ml) SC SCH ×4 (00:28→18:00)
[2023-03-07] MEDS: LORazepam 2MG/ML-1ML VIAL IV PRN (00:40)
[2023-03-07 04:07] LABS: Base Excess 4.9 mmol/L (-2.0-2.0)
[2023-03-07] MEDS: ACYCLOVIR SOD 50MG/ML 800 MG in SODIUM CHL 0.9% 250 ML IV SCH ×3 (04:57→22:12)
[2023-03-07 05:17] LABS: Albumin 2.2 g/dL (3.4-5.0); Calcium 10.1 mg/dL (8.5-10.1); Magnesium 1.6 mg/dL (1.6-2.6); Potassium 3.7 mmol/L (3.5-5.1)
[2023-03-07 05:23] LABS: BUN/Creatinine Ratio 29.2 (10.0-20.0); Bilirubin, Total 0.3 mg/dL (0.2-1.0); Total Protein 8.9 g/dL (6.4-8.2)
[2023-03-07 05:57] LABS: Base Excess 3.3 mmol/L (-2.0-2.0)
[2023-03-07] MEDS ORDERED: SUCCINYLCHOLINE CHLORIDE 20 MG/ML 10ML VIAL IV ONE (06:01)
[2023-03-07] MEDS ORDERED: ETOMIDATE (2MG/ML) 20ML VIAL IV ONE (06:01)
[2023-03-07] MEDS: ACCU-CHEK COMFORT CURVE STRIP VI SCH ×4 (06:24→18:35)
[2023-03-07] MEDS ORDERED: IBUPROFEN 100MG/5ML ORAL SUSP 100 MG/5 ML UD GT PRN (06:30)
[2023-03-07] MEDS: MIDAZOLAM DRIP 50 mg/50mL 50 ML IV SCH ×6 (06:30→22:12)
[2023-03-07] MEDS: LACTULOSE 10g/15ml SOLN 473ML PR SCH ×5 (07:30→23:34)
[2023-03-07] MEDS: SODIUM CHLORIDE 0.9% 1,000 ML IV SCH ×2 (07:30→11:30)
[2023-03-07 07:36] LABS: Eosinophils # (auto) 0.1 10 ^3/uL (0-0.8)
[2023-03-07 07:38] LABS: Basophils # (auto) 0.3 10 ^3/uL (0-0.2); Basophils % (auto) 1.3 % (0.0-2.0); Eosinophils % (auto) 0.3 % (0.0-7.0); Hemoglobin 12.5 g/dL (13.5-17.5); Lymphocytes % (auto) 9.4 % (10.0-50.0); Mean Corpuscular Hemoglobin 21.9 pg (28.0-32.0); Mean Corpuscular Volume 68.5 fL (80.0-100.0); Monocytes # (auto) 2.8 10 ^3/uL (0-1.3); Monocytes % (auto) 13.7 % (0.0-12.0); Neutrophils # (auto) 15.7 10 ^3/uL (1.6-8.6); Neutrophils % (auto) 75.3 % (37.0-80.0); Nucleated Red Blood Cells % 0.1 %; Red Blood Cells 5.69 10^6/uL (4.5-5.90); Red Cell Distribution Width 19.4 % (11.8-14.3); White Blood Cell 20.8 10^3/uL (4.4-10.8)
[2023-03-07] MEDS ORDERED: fentaNYL Drip 2500mCg/250mlNS 250 ML IV ONE (07:52)
[2023-03-07] MEDS ORDERED: ACETAMINOPHEN 325 MG TAB PO PRN (08:00)
[2023-03-07] MEDS ORDERED: ACETAMINOPHEN IV 1000 MG/100ML (10MG/ML) IV ONE (08:00)
[2023-03-07] MEDS: fentaNYL Drip 2500mCg/250mlNS 250 ML IV SCH (08:02)
[2023-03-07 08:11] LABS: Base Excess 3.5 mmol/L (-2.0-2.0)
[2023-03-07] MEDS ORDERED: NOREPINEPHRINE 8 MG/250ML KIT 250 ML IV ONE (09:29)
[2023-03-07] MEDS: NOREPINEPHRINE 8 MG/250ML KIT 250 ML IV SCH ×2 (09:45→23:33)
[2023-03-07] MEDS: LISINOPRIL 10 MG TAB PO SCH (10:00)
[2023-03-07] MEDS: PANTOPRAZOLE 40 MG/10 ML VIAL INJ IV SCH (10:01)
[2023-03-07] MEDS: methylPREDNISolone SOD SUCC 40 MG/ML VL IV SCH (10:02)
[2023-03-07 10:47] LABS: INR 1.66 (0.9-1.15); Prothrombin Time 16.9 sec (9.3-11.8)
[2023-03-07] MEDS ORDERED: SODIUM PHOSP 40 MEQ in D5W 5% 250 ML IV ONE (11:15)
[2023-03-07] MEDS: MAGNESIUM SULFATE 1GM/100ML 100 ML IV SCH ×2 (12:29→14:55)
[2023-03-07] MEDS: LACTULOSE 20Gm/30ML SOLN PO SCH ×3 (12:29→23:34)
[2023-03-07] MEDS: VANCOMYCIN 1GM/250ML 250 ML IV SCH ×2 (13:42→23:27)
[2023-03-07] MEDS ORDERED: LIDOCAINE 1% (LOCAL ANESTH.) PF 5ml SDV ID ONE (14:30)
[2023-03-07] MEDS: CEFTRIAXONE SODIUM 2 GM in D5W 5% 100 ML IV SCH ×2 (16:11→20:59)
[2023-03-07] MEDS ORDERED: PPN PER PHARMACY IV NR ×10 (20:00)
[2023-03-07] MEDS: ATORVASTATIN 20 MG TAB PO SCH (20:59)
[2023-03-07] MEDS ORDERED: AMINO ACID INFUSION IN D10W 1,000 ML IV NR (21:00)
[2023-03-07] MEDS: SODIUM CHLOR 0.9% PF (SALINE LOCK) 10ML VIAL/SYR IV SCH (21:00)
[2023-03-08] VITALS (96 sets, daily range): BP systolic 59–150; BP diastolic 36–92; PULSE 79–109; RESP 14–21; TEMP 97.2–99.1; O2SAT 98–100
[2023-03-08] MEDS: InsuLIN REG 1unit/0.01ml Soln (100units/ml) SC SCH ×4 (00:20→18:11)
[2023-03-08] MEDS: ACCU-CHEK COMFORT CURVE STRIP VI SCH ×4 (00:21→18:07)
[2023-03-08] MEDS: MIDAZOLAM DRIP 50 mg/50mL 50 ML IV SCH ×6 (02:21→22:54)
[2023-03-08] MEDS: SODIUM CHLORIDE 0.9% 1,000 ML IV SCH ×3 (02:23→21:38)
[2023-03-08 04:11] LABS: Eosinophils # (auto) 0.3 10 ^3/uL (0-0.8); Hemoglobin 10.8 g/dL (13.5-17.5); Lymphocytes % (auto) 11.5 % (10.0-50.0); Monocytes # (auto) 1.9 10 ^3/uL (0-1.3); Monocytes % (auto) 12.5 % (0.0-12.0)
[2023-03-08 04:14] LABS: Basophils # (auto) 0.1 10 ^3/uL (0-0.2); Basophils % (auto) 0.8 % (0.0-2.0); Eosinophils % (auto) 1.6 % (0.0-7.0); Hematocrit 34.3 % (41.0-53.0); Lymphocytes # (auto) 1.7 10 ^3/uL (0.4-5.4); Mean Corpuscular Hemoglobin 22.1 pg (28.0-32.0); Mean Corpuscular Hgb Conc. 31.5 g/dL (32.0-36.0); Mean Corpuscular Volume 70.1 fL (80.0-100.0); Neutrophils # (auto) 11.2 10 ^3/uL (1.6-8.6); Neutrophils % (auto) 73.6 % (37.0-80.0); Red Blood Cells 4.89 10^6/uL (4.5-5.90); Red Cell Distribution Width 19.1 % (11.8-14.3); White Blood Cell 15.2 10^3/uL (4.4-10.8)
[2023-03-08 04:24] LABS: INR 1.48 (0.9-1.15); Prothrombin Time 15.1 sec (9.3-11.8)
[2023-03-08 04:31] LABS: Potassium 3.2 mmol/L (3.5-5.1)
[2023-03-08 04:38] LABS: Albumin 1.9 g/dL (3.4-5.0); BUN/Creatinine Ratio 33.3 (10.0-20.0); Bilirubin, Total 0.2 mg/dL (0.2-1.0); Calcium 9.5 mg/dL (8.5-10.1); Magnesium 2.4 mg/dL (1.6-2.6); Phosphorus 4.1 mg/dL (2.5-4.90)
[2023-03-08] MEDS: ACYCLOVIR SOD 50MG/ML 800 MG in SODIUM CHL 0.9% 250 ML IV SCH ×3 (04:45→22:54)
[2023-03-08] MEDS: LACTULOSE 10g/15ml SOLN 473ML PR SCH ×3 (05:54→18:00)
[2023-03-08] MEDS: LACTULOSE 20Gm/30ML SOLN PO SCH ×3 (05:54→18:04)
[2023-03-08] MEDS: NOREPINEPHRINE 8 MG/250ML KIT 250 ML IV SCH ×2 (05:55→11:58)
[2023-03-08 07:42] LABS: Base Excess -0.1 mmol/L (-2.0-2.0)
[2023-03-08] MEDS: fentaNYL Drip 2500mCg/250mlNS 250 ML IV SCH (08:00)
[2023-03-08] MEDS: VANCOMYCIN 1GM/250ML 250 ML IV SCH ×2 (08:37→18:04)
[2023-03-08] MEDS: CEFTRIAXONE SODIUM 2 GM in D5W 5% 100 ML IV SCH ×2 (09:53→21:38)
[2023-03-08] MEDS: PANTOPRAZOLE 40 MG/10 ML VIAL INJ IV SCH (09:53)
[2023-03-08] MEDS: methylPREDNISolone SOD SUCC 40 MG/ML VL IV SCH (09:54)
[2023-03-08] MEDS: SODIUM CHLOR 0.9% PF (SALINE LOCK) 10ML VIAL/SYR IV SCH ×2 (09:54→21:38)
[2023-03-08] MEDS: LISINOPRIL 10 MG TAB PO SCH (09:54)
[2023-03-08 11:11] LABS: Base Excess 3.1 mmol/L (-2.0-2.0)
[2023-03-08] MEDS: POTASSIUM CHL 20MEQ/100ML 100 ML IV SCH ×2 (15:14→18:03)
[2023-03-08] MEDS ORDERED: Glucerna 1.2 Cal 1Liter BOTTLE GT SCH (17:00)
[2023-03-08] MEDS: ATORVASTATIN 20 MG TAB PO SCH (21:39)
[2023-03-08] MEDS ORDERED: MANNITOL 20% SOLN 100 gm/500ml 300 ML IV PRN (22:00)
[2023-03-09] VITALS (59 sets, daily range): BP systolic 64–153; BP diastolic 33–94; PULSE 75–100; RESP 20–21; TEMP 96.8–98.8; O2SAT 90–99
[2023-03-09] MEDS: LACTULOSE 20Gm/30ML SOLN PO SCH ×3 (00:10→12:23)
[2023-03-09] MEDS: ACCU-CHEK COMFORT CURVE STRIP VI SCH ×3 (00:15→12:10)
[2023-03-09] MEDS: InsuLIN REG 1unit/0.01ml Soln (100units/ml) SC SCH ×3 (00:17→12:15)
[2023-03-09] MEDS: fentaNYL Drip 2500mCg/250mlNS 250 ML IV SCH (00:18)
[2023-03-09] MEDS: NOREPINEPHRINE 8 MG/250ML KIT 250 ML IV SCH ×2 (00:41→09:35)
[2023-03-09] MEDS: MIDAZOLAM DRIP 50 mg/50mL 50 ML IV SCH ×3 (02:34→08:59)
[2023-03-09] MEDS: SODIUM CHLORIDE 0.9% 1,000 ML IV SCH (03:30)
[2023-03-09] MEDS: LACTULOSE 10g/15ml SOLN 473ML PR SCH ×3 (04:26→12:00)
[2023-03-09] MEDS: VANCOMYCIN 1GM/250ML 250 ML IV SCH (04:46)
[2023-03-09 04:47] LABS: Eosinophils # (auto) 0.2 10 ^3/uL (0-0.8); Nucleated Red Blood Cells % 0.1 %
[2023-03-09 04:50] LABS: Basophils # (auto) 0.1 10 ^3/uL (0-0.2); Basophils % (auto) 0.5 % (0.0-2.0); Eosinophils % (auto) 1.3 % (0.0-7.0); Hematocrit 38.2 % (41.0-53.0); Lymphocytes # (auto) 2.3 10 ^3/uL (0.4-5.4); Lymphocytes % (auto) 13.2 % (10.0-50.0); Mean Corpuscular Hemoglobin 22.1 pg (28.0-32.0); Mean Corpuscular Hgb Conc. 31.4 g/dL (32.0-36.0); Mean Corpuscular Volume 70.5 fL (80.0-100.0); Monocytes # (auto) 2.4 10 ^3/uL (0-1.3); Monocytes % (auto) 13.8 % (0.0-12.0); Neutrophils # (auto) 12.2 10 ^3/uL (1.6-8.6); Neutrophils % (auto) 71.2 % (37.0-80.0); Red Blood Cells 5.43 10^6/uL (4.5-5.90); Red Cell Distribution Width 19.9 % (11.8-14.3); White Blood Cell 17.1 10^3/uL (4.4-10.8)
[2023-03-09 04:52] LABS: BUN/Creatinine Ratio 25.5 (10.0-20.0); Calcium 11.2 mg/dL (8.5-10.1); Potassium 3.3 mmol/L (3.5-5.1)
[2023-03-09] MEDS: ACYCLOVIR SOD 50MG/ML 800 MG in SODIUM CHL 0.9% 250 ML IV SCH (05:17)
[2023-03-09 07:49] LABS: Base Excess 0.1 mmol/L (-2.0-2.0)
[2023-03-09] MEDS: CEFTRIAXONE SODIUM 2 GM in D5W 5% 100 ML IV SCH (08:58)
[2023-03-09] MEDS: SODIUM CHLOR 0.9% PF (SALINE LOCK) 10ML VIAL/SYR IV SCH (09:35)
[2023-03-09] MEDS: PANTOPRAZOLE 40 MG/10 ML VIAL INJ IV SCH (09:35)
[2023-03-09] MEDS: methylPREDNISolone SOD SUCC 40 MG/ML VL IV SCH (09:35)
[2023-03-09] MEDS: LISINOPRIL 10 MG TAB PO SCH (09:36)
== END 2023-03-09 13:30 | disposition short-term general hospital (02) | DRG 720 ==
LOC: ER 10:21 → EDBD 10:21 → TELE 23:27 → TELE-CENTR 03-04 23:53 → ICU WEST 03-05 00:07 → DOU IN ICU 03-05 12:27 → TELE-CENTR 03-05 15:22 → ICU CENTRL 03-05 15:29 → DOU IN ICU 03-05 18:28 → ICU WEST 03-07 06:10
PROVIDERS: ADMIT Internal Medicine Pulmonary Disease; ATTEND Internal Medicine Pulmonary Disease
PROC: 5A1945Z Respiratory Ventilation, 24-96 Consecutive Hours (ICD-10-PCS; principal; 2023-03-07)
PROC: 0BH17EZ Insertion of Endotracheal Airway into Trachea, Via Natural or Artificial Opening (ICD-10-PCS; 2023-03-07)
PROC: 02HV33Z Insertion of Infusion Device into Superior Vena Cava, Percutaneous Approach (ICD-10-PCS; 2023-03-07)
PROC: B548ZZA Ultrasonography of Superior Vena Cava, Guidance (ICD-10-PCS; 2023-03-07)
PROC: 30233N1 Transfusion of Nonautologous Red Blood Cells into Peripheral Vein, Percutaneous Approach (ICD-10-PCS; 2023-03-07)
DX: A41.9 Sepsis, unspecified organism (principal); G93.6 Cerebral edema; J96.21 Acute and chronic respiratory failure with hypoxia; R65.21 Severe sepsis with septic shock; G04.90 Encephalitis and encephalomyelitis, unspecified; D61.818 Other pancytopenia; E43 Unspecified severe protein-calorie malnutrition; C85.10 Unspecified B-cell lymphoma, unspecified site; G93.41 Metabolic encephalopathy; D68.9 Coagulation defect, unspecified; C85.90 Non-Hodgkin lymphoma, unspecified, unspecified site; I50.9 Heart failure, unspecified; I11.0 Hypertensive heart disease with heart failure; E11.9 Type 2 diabetes mellitus without complications; J98.11 Atelectasis; F17.210 Nicotine dependence, cigarettes, uncomplicated; R59.1 Generalized enlarged lymph nodes; F19.10 Other psychoactive substance abuse, uncomplicated; F15.10 Other stimulant abuse, uncomplicated; F11.10 Opioid abuse, uncomplicated; R74.8 Abnormal levels of other serum enzymes; B02.9 Zoster without complications; Z82.3 Family history of stroke; Z83.3 Family history of diabetes mellitus; Z82.49 Family history of ischemic heart disease and other diseases of the circulatory system; Z88.5 Allergy status to narcotic agent; Z68.25 Body mass index [BMI] 25.0-25.9, adult
CPT/HCPCS: 36415; 36569; 36600; 70450; 70551; 71045; 71275; 80048; 80053; 80202; 80307; 81001; 82140; 82805; 82962; 83605; 83735; 83880; 84100; 84478; 84484; 85007; 85025; 85027; 85379; 85610; 85730; 86703; 86850; 86900; 86901; 87040; 87070; 87077; 87081; 87205; 93005; 93306; 94002; 94003; 95819; 96365; 96375; C9113; G0378; J0131; J0330; J0696; J1815; J1885; J1956; J2250; J2405; J3480; J7060